=== PATIENT | male | born 1975 | race Caucasian/White ===

== ENCOUNTER 2020-09-21 18:05 | Inpatient (IN) | payer OTHER ==
[~2020-09-21] VITALS: Ht 327.7 cm; Wt 99.8 kg
[2020-09-21] MEDS ORDERED: LORAZEPAM 2MG/ML CPJ IM STA (18:17)
[2020-09-21] MEDS ORDERED: HALOPERIDOL LACTATE 5MG/ML VIAL IM STA (18:17)
[2020-09-21] MEDS ORDERED: SODIUM CHLORIDE 0.9% 1,000 ML IV ONE (18:30)
[2020-09-21 19:27] LABS: BASOPHILS % 0.8 % (0.0-2.0); HEMATOCRIT. 47.1 % (42.0-52.0); HEMOGLOBIN. 16.1 g/dL (14.0-18.0); LYMPHOCYTES % 31.2 % (20.0-50.0); MEAN CORPUSCULAR HEMOGLOBIN 32.8 pg (28.0-32.0); MEAN PLATELET VOLUME 8.9 fl (7.4-10.4); MONOCYTES % 7.3 % (2.0-8.0); NEUTROPHILS % 59.7 % (40.0-76.0); PLATELET 243 x1000/uL (130-400); RED BLOOD CELL COUNT 4.91 mill/uL (4.7-6.1); RED CELL DISTRIBUTION WIDTH 14.3 % (11.6-14.6)
[2020-09-21 19:33] LABS: CLARITY URINE CLEAR (CLEAR); COLOR URINE YELLOW (YELLOW); KETONES URINE NEGATIVE (NEGATIVE); LEUKOCYTE ESTERASE URINE NEGATIVE (NEGATIVE); NITRITE URINE NEGATIVE (NEGATIVE); OCCULT BLOOD URINE NEGATIVE (NEGATIVE); PROTEIN URINE 2+ (NEGATIVE); SPECIFIC GRAVITY URINE 1.013 (1.005-1.030); UROBILINOGEN URINE 0.2 E.U./dL (0.2-1.0)
[2020-09-21 19:36] LABS: CHLORIDE 106 mEq/L (98-107)
[2020-09-21 19:45] LABS: *COCAINE SCREEN URINE NEGATIVE (NEGATIVE); CANNABINOID URINE SCREEN PRESUMTIVE POSITIVE (NEGATIVE); METHADONE URINE SCREEN NEGATIVE (NEGATIVE); OPIATES URINE SCREEN NEGATIVE (NEGATIVE); PHENCYCLIDINE URINE SCREEN NEGATIVE (NEGATIVE)
[2020-09-21 19:46] LABS: *AMPHETAMINES SCREEN URINE NEGATIVE (NEGATIVE); *BARBITURATES SCREEN URINE NEGATIVE (NEGATIVE); *BENZODIAZEPINES SCREEN URINE PRESUMTIVE POSITIVE (NEGATIVE)
[2020-09-21 20:16] LABS: ETHANOL BLOOD 305 mg/dL
[2020-09-22] MEDS ORDERED: AMLODIPINE 5MG TABLET PO ONE (02:15)
[2020-09-22] MEDS ORDERED: SODIUM CHLORIDE 0.9% 1,000 ML IV ONE (02:45)
[2020-09-22] MEDS ORDERED: ONDANSETRON HCL 4MG/2ML INJ IV ONE (02:45)
[2020-09-22] MEDS ORDERED: CLONIDINE 0.2MG TABLET PO PRN (04:30)
[2020-09-22] MEDS: METOPROLOL TARTRATE 50MG TABLET PO SCH ×2 (05:16→21:20)
[2020-09-22] MEDS ORDERED: HYDRALAZINE HCL 50MG TABLET PO SCH (06:00)
[2020-09-22] MEDS: TRAZODONE HCL 50MG TABLET PO SCH ×2 (06:15→21:19)
[2020-09-22 09:00] VITALS: BP 146/76
[2020-09-22 10:00] VITALS: BP 146/76
[2020-09-22] MEDS ORDERED: ONDANSETRON HCL 4MG/2ML INJ IV PRN (10:30)
[2020-09-22] MEDS ORDERED: ALPRAZOLAM 0.5 MG TABLET PO PRN (10:30)
[2020-09-22] MEDS ORDERED: LORAZEPAM 2MG/ML CPJ IV PRN (10:30)
[2020-09-22] MEDS ORDERED: LORA2ORA5 PO ×2 (10:31)
[2020-09-22] MEDS ORDERED: GABA-290 PO (10:32)
[2020-09-22] MEDS ORDERED: QUET200T PO (10:32)
[2020-09-22] MEDS: FOLIC ACID 1MG TABLET PO SCH (10:52)
[2020-09-22] MEDS: THIAMINE HCL 100MG TABLET PO SCH (10:52)
[2020-09-22] MEDS: MULTIVITAMINS,THER W-MINERALS TABLET PO SCH (11:45)
[2020-09-22 12:00] VITALS: BP 148/77
[2020-09-22 16:00] VITALS: BP 151/81
[2020-09-22] MEDS: CHLORDIAZEPOXIDE 25MG CAPSULE PO SCH ×2 (16:13→21:19)
[2020-09-22] MEDS: AMLODIPINE 10MG TABLET PO SCH (18:03)
[2020-09-23 04:00] VITALS: BP 158/62
[2020-09-23 05:57] LABS: BASOPHILS % 0.5 % (0.0-2.0); HEMATOCRIT. 48.9 % (42.0-52.0); HEMOGLOBIN. 16.4 g/dL (14.0-18.0); LYMPHOCYTES % 17.3 % (20.0-50.0); MEAN CORPUSCULAR HEMOGLOBIN 31.9 pg (28.0-32.0); MEAN CORPUSCULAR VOLUME 94.9 fL (80.0-94.0); MEAN PLATELET VOLUME 9.4 fl (7.4-10.4); MONOCYTES % 7.4 % (2.0-8.0); NEUTROPHILS % 74.8 % (40.0-76.0); PLATELET 234 x1000/uL (130-400); RED BLOOD CELL COUNT 5.16 mill/uL (4.7-6.1); RED CELL DISTRIBUTION WIDTH 14.7 % (11.6-14.6)
[2020-09-23] MEDS: CHLORDIAZEPOXIDE 25MG CAPSULE PO SCH ×2 (05:57→13:13)
[2020-09-23 06:09] LABS: CHLORIDE 106 mEq/L (98-107)
[2020-09-23 08:00] VITALS: BP_SYST 171; BP_SYST 191; BP_DIAS 76; BP_DIAS 98
[2020-09-23] MEDS: THIAMINE HCL 100MG TABLET PO SCH (09:09)
[2020-09-23] MEDS: FOLIC ACID 1MG TABLET PO SCH (09:09)
[2020-09-23] MEDS: METOPROLOL TARTRATE 50MG TABLET PO SCH (09:09)
[2020-09-23] MEDS: AMLODIPINE 10MG TABLET PO SCH (09:10)
[2020-09-23] MEDS: MULTIVITAMINS,THER W-MINERALS TABLET PO SCH (09:10)
[2020-09-23] MEDS ORDERED: LOSARTAN POTASSIUM 100 MG TABLET PO SCH (09:45)
[2020-09-23 11:38] VITALS: BP 157/78
[2020-09-23 12:00] VITALS: BP 136/90
[2020-09-23] MEDS ORDERED: METO-539 MT (13:29)
[2020-09-23] MEDS ORDERED: AMLO10TA80 PO (13:29)
[2020-09-23] MEDS ORDERED: LOSA100T3 PO (13:29)
[2020-09-23 16:12] VITALS: BP 154/81
== END 2020-09-23 18:00 | disposition home or self-care (01) | DRG 871 ==
LOC: ER 18:05 → ENRESERV 09-22 07:21 → 8WST 09-22 09:50
PROVIDERS: ADMIT Internal Medicine; ATTEND Internal Medicine
DX: A41.9 Sepsis, unspecified organism (principal); G92 Toxic encephalopathy; J96.91 Respiratory failure, unspecified with hypoxia; I10 Essential (primary) hypertension; Y90.8 Blood alcohol level of 240 mg/100 ml or more; F10.129 Alcohol abuse with intoxication, unspecified; F17.210 Nicotine dependence, cigarettes, uncomplicated; Z88.6 Allergy status to analgesic agent; Z71.41 Alcohol abuse counseling and surveillance of alcoholic; Z79.899 Other long term (current) drug therapy
CPT/HCPCS: 36415; 71045; 80048; 80053; 80305; 80307; 80320; 80329; 81003; 84145; 85025; 93005; 99291; J1630; J2060; J2405; J7030; G0480